=== PATIENT | male | born 1975 | race Caucasian/White ===

== ENCOUNTER 2017-06-23 20:36 | Emergency (ER) | payer BC ==
[2017-06-23 21:03] VITALS: BP 147/97
--- NOTE | 2017-06-23 21:15 | UC ---
Respiratory Complaint HPI - HPI Summary HPI Summary: 41 yo male with cough x 4 weeks now with 3-4 days of progressively worsening wheezing and chest tightness ? fever at times cough generally not productive remote hx of asthma and bronchitis - History of Current Complaint Chief Complaint: UCRespiratory Stated Complaint: COUGH Time Seen by Provider: 06/23/17 21:01 Hx Obtained From: Patient Onset/Duration: Gradual Onset, Lasting Hours, Lasting Weeks Severity Initially: Mild Severity Currently: Severe Pain Intensity: 0 Pain Scale Used: 0-10 Numeric Character: Cough: Nonproductive Aggravating Factors: Exertion, Deep Breaths, Recumbent Position Alleviating Factors: Nothing Associated Signs And Symptoms: Positive: Dyspnea, Wheezing, Nasal Congestion - Allergies/Home Medications Allergies/Adverse Reactions: Allergies Allergy/AdvReac Type Severity Reaction Status Date / Time No Known Allergies Allergy Verified 06/23/17 21:03 PMH/Surg Hx/FS Hx/Imm Hx Previously Healthy: Yes Respiratory History: Asthma, Bronchitis - Surgical History Surgical History: None - Family History Known Family History: Positive: Hypertension - Social History Alcohol Use: Rare Substance Use Type: None Smoking Status (MU): Never Smoked Tobacco Review of Systems Constitutional: Fever - at times ENT: Sinus Congestion Respiratory: Shortness Of Breath, Cough Motor: Decreased ROM Musculoskeletal: Negative Neurological: Headache Is Patient Immunocompromised?: No All Other Systems Reviewed And Are Negative: Yes Physical Exam Triage Information Reviewed: Yes Appearance: No Pain Distress, Well-Nourished, Ill-Appearing Vital Signs: Initial Vital Signs Temp 98.2 F 06/23/17 20:56 Pulse 101 06/23/17 20:56 Resp 16 06/23/17 20:56 BP 147/97 06/23/17 20:56 Pulse Ox 90 06/23/17 20:56 Eyes: Positive: Conjunctiva Clear ENT: Positive: Pharynx normal. Negative: Nasal congestion, Nasal drainage, Tonsillar swelling, Tonsillar exudate Neck: Positive: Supple, Nontender, No Lymphadenopathy Respiratory: Positive: Chest non-tender, No respiratory distress, Wheezing Cardiovascular: Positive: RRR, Tachycardia Musculoskeletal: Positive: ROM Intact, No Edema Neurological: Positive: Alert Psychological Exam: Normal Skin Exam: Normal UC Diagnostic Evaluation - Laboratory Pertinent Lab Values Are: WNL - NEG FLU O2 Sat by Pulse Oximetry: 90 - low/hypoxic - Radiology Xray Interpretation: No Acute Changes - except elevated lung volumes Re-Evaluation - Re-Evaluation First Eval Re-Evaluation Time: 22:09 Change: Improved - MUCH BETTER AIR MOVEMENT FEELS BETTER WHEEZING STILL BUT NO INCREASED WOB Respiratory Course/Dx - Differential Dx/Diagnosis Provider Diagnoses: ACUTE BRONCHITIS WITH BRONCHOSPASM Discharge - Discharge Plan Condition: Improved Disposition: HOME Prescriptions: Amoxicillin PO (*) [Amoxicillin 875 MG (*)] 875 mg PO BID #14 tab predniSONE [Deltasone] 40 mg PO DAILY #8 tab Referrals: Prieto Mercedes MD [Primary Care Provider] -
[2017-06-23] MEDS: Albuterol 2.5 MG/3 ML NEB.SOL* (0.083%) INH ONE (21:20)
[2017-06-23] MEDS: Ipratropium 0.5MG/2.5ML NEB* 0.5 MG/2.5 ML NEB.SOLN INH ONE (21:21)
--- NOTE | 2017-06-23 21:37 | RAD ---
INDICATION: Cough for 4 weeks. History of bronchitis. COMPARISON: No relevant prior exams available on the [facility] for comparison. TECHNIQUE: Dual energy PA and routine lateral views of the chest were obtained. REPORT: Elevated lung volumes. No focal pulmonary lesion, compelling alveolar consolidation, pleural effusion, pneumothorax. The heart, pulmonary vasculature, and mediastinal contours are unremarkable. IMPRESSION: Elevated lung volumes suggest potential obstructive lung disease. No acute cardiopulmonary process evident.
[2017-06-23] MEDS: Amoxicillin PO (*) 500 MG CAP PO ONE (21:50)
[2017-06-23] MEDS: predniSONE TAB* 20 MG PO ONE (21:50)
[2017-06-23] MEDS: Albuterol HFA INHALER* 8 gm MDI INH ONE (21:53)
== END 2017-06-23 22:15 | disposition home or self-care (01) ==
LOC: UCCORT 20:36
DX: J20.9 Acute bronchitis, unspecified (principal)
CPT/HCPCS: 71046; 87502; 99213; A9270-GY; G0463; J7512